=== PATIENT | female | born 1990 | race Caucasian/White ===

== ENCOUNTER 2016-03-26 11:21 | Outpatient (CLI) | payer BC | END 2016-03-26 11:22 | disposition home or self-care (01) | DX: Z36 Encounter for antenatal screening of mother (principal); Z3A.01 Less than 8 weeks gestation of pregnancy; Z34.81 Encounter for supervision of other normal pregnancy, first trimester ==

== ENCOUNTER 2016-06-04 07:31 | Outpatient (CLI) | payer BC | END 2016-06-04 07:32 | disposition home or self-care (01) | DX: Z36 Encounter for antenatal screening of mother (principal) ==

== ENCOUNTER 2016-07-13 08:00 | Outpatient (CLI) | payer BC | END 2016-07-13 08:01 | disposition home or self-care (01) | DX: Z36 Encounter for antenatal screening of mother (principal) ==

== ENCOUNTER 2016-07-28 07:56 | Outpatient (CLI) | payer BC ==
[2016-07-28 08:54] LABS: GTT GLUCOSE,FASTING 89 mg/dL (70-100)
== END 2016-07-28 07:57 | disposition home or self-care (01) ==
LOC: LAB 07:56
PROVIDERS: ATTEND Obstetrics & Gynecology
DX: Z36 Encounter for antenatal screening of mother (principal)
CPT/HCPCS: 36415; 82951

== ENCOUNTER 2016-09-17 10:30 | Outpatient (CLI) | payer BC | END 2016-09-17 10:31 | disposition home or self-care (01) | LOC: LAB.R 10:30 | PROVIDERS: ATTEND Obstetrics & Gynecology | DX: Z34.83 Encounter for supervision of other normal pregnancy, third trimester (principal) | CPT/HCPCS: 87081 ==

== ENCOUNTER 2016-09-24 11:47 | Outpatient (CLI) | payer BC ==
[2016-09-24 12:04] VITALS: BP 123/86
--- NOTE | 2016-10-05 07:21 | PROCEDURE REPORT ---
DATE OF PROCEDURE: 09/24/2016 00:00:00 PREOPERATIVE DIAGNOSIS: Breech presentation; transverse to oblique currently. POSTOPERATIVE DIAGNOSIS: Successful version. PROCEDURE: External version. PHYSICIAN: Kevin Grant MD, FACOG. ANESTHESIA: Jos Forman CRNA, on standby. BLOOD LOSS: Minimal. COMPLICATIONS: None. FINDINGS 1. Yesterday's examination confirmed a everton breech presentation with adequate fluid. Placenta is n oted to be anterior. Initial ultrasound exam finds a transverse to oblique, slightly head-down prese ntation. There is adequate fluid. 2. Post-procedure ultrasound confirms head-down. TECHNIQUE: Patient had a confirmed breech presentation yesterday. She underwent an informed consent session, that she was informed of options, expectant management, external version, or elective C-sec tion. She decided on version. She is aware of the risks, being cord entanglement, compromise, emergent , pain and discomfort, and abruption. Untoward events were quoted to be less than 6% with possibility of loss attributed to version less than 1%. All questions were answered. Discussed case with OR and Anesthesia. Anesthesia talked to the patient and was on alert. OR had a room open and ready for emergent section. A second laboratory secretary was in the building, Dr. Jaeger. Began the initial exam and found the head to be head-down oblique. Application of ultrasound sensor to the back initiated an easy forward somersault rotation to a complete vertex presentation. Mother was monitored post version and found to have no evidence of distress. Patient was given instru ctions and discharged home. Blood type is Rh positive and RhoGAM not required. JOB #: [id number] EXT JOB #:[id number]
== END 2016-09-24 13:15 | disposition home or self-care (01) ==
LOC: WFO 11:47 → OB 11:49 → WFO 13:15
PROVIDERS: ATTEND Obstetrics & Gynecology
DX: O32.2XX0 Maternal care for transverse and oblique lie, not applicable or unspecified (principal); Z3A.37 37 weeks gestation of pregnancy
CPT/HCPCS: 59025

== ENCOUNTER 2016-10-15 00:02 | Inpatient (IN) | payer BC ==
[2016-10-15] MEDS ORDERED: OXYTOCIN 10 UNIT/ML VIAL IM SCH (00:23)
[2016-10-15] MEDS ORDERED: LACTATED RINGERS 1,000 ML IV ONE (00:27)
[2016-10-15] MEDS ORDERED: SODIUM CHLORIDE FLUSH 0.9% 10 ML SYRINGE IVP ONE (00:27)
[2016-10-15] MEDS ORDERED: miSOPROStol 200 MCG TABLET ONE (00:29)
[2016-10-15] MEDS ORDERED: LIDOCAINE 1% 50 ML MDV ONE (00:29)
[2016-10-15] MEDS ORDERED: MINERAL OIL LIGHT 10 ML MC ONE (00:29)
[2016-10-15] MEDS: LACTATED RINGERS 1,000 ML IV SCH ×2 (00:30→21:59)
[2016-10-15] MEDS ORDERED: TERBUTALINE 1 MG/ML VIAL SUBQ ONE (00:30)
[2016-10-15] MEDS ORDERED: OXYTOCIN/LACTATED RINGERS 250 ML IV ONE (00:30)
--- NOTE | 2016-10-15 00:52 | HISTORY & PHYSICAL EXAMINATION ---
DATE OF ADMISSION: 10/15/2016 IDENTIFICATION: This is a 26-year-old G4, P3-0-0-3 with a 40 and 1/7 week intrauterine , EDC is 10/14/2016 changed by a 7 week ultrasound. HISTORY OF PRESENT ILLNESS: The patient is a patient of [facility] who has noticed that her bag of water has been leaking. She is also experiencing small contractions. Initially on examination she was 9 cm dilated. She is kierra consistently every 2 to 3 minutes. heart status is reassuring. The patient has been having routine care with us at [facility] since 7 weeks gestation. She is noted to be GBS negative. The patient would like an epidural but I fear that she will deliver before this is possible. PAST MEDICAL HISTORY: None. PAST SURGICAL HISTORY: None. ALLERGIES: NO KNOWN DRUG ALLERGIES. MEDICATIONS: vitamins. SOCIAL HISTORY: She denies any tobacco, alcohol or illicit drug use. Her is Jose Antonio, and they have sons Chano, Cooper and Damir and this is a male infant. PAST OBSTETRICAL HISTORY: Three vaginal deliveries. The last delivery was a vacuum assisted secondary to nonreassuring heart tones. She did have a clinical placenta abruption at the time of delivery. Last labor lasted 2 hours. PAST GYNECOLOGICAL HISTORY: She denies any abnormal Pap smears or sexually transmitted diseases. She also denies any irregular menstruation. FAMILY HISTORY: Noncontributory. REVIEW OF SYSTEMS Negative. PHYSICAL EXAMINATION VITAL SIGNS: Stable. She is afebrile. ABDOMEN: Gravid, nontender. LABS: A positive, antibody screen negative, HIV negative, PRP nonreactive, Hep B negative, 1 hr GTT 149, 3 hr GTT 89, 148, 141, 126. GBS negative. ASSESSMENT: 1. G4, P3-0-0-3 with a 40 and 1/7 week intrauterine . 2. Active labor. PLAN: Will anticipate spontaneous vaginal delivery. JOB #: [id number] EXT JOB #:[id number] PATRICIA
[2016-10-15 00:54] LABS: BASOPHILS # (AUTO) 0.1 10^3/uL (0.0-0.1); BASOPHILS % (AUTO) 0.6 %; EOSINOPHILS # (AUTO) 0.1 10^3/uL (0.0-0.7); EOSINOPHILS % (AUTO) 0.9 %; HCT - HEMATOCRIT 33.4 % (37.0-47.0); HGB - HEMOGLOBIN 10.3 g/dL (12.0-16.0); LYMPHOCYTES # (AUTO) 4.2 10^3/uL (1.5-3.5); MEAN CORPUSCULAR HEMOGLOBIN 20.7 pg (27.0-31.0); MEAN CORPUSCULAR HGB CONC 30.9 g/dL (32.0-36.0); MEAN PLATELET VOLUME 8.6 fL (7.9-10.8); MONOCYTES # (AUTO) 1.2 10^3/uL (0.0-1.0); MONOCYTES % (AUTO) 7.9 %; NEUTROPHILS # (AUTO) 9.4 10^3/uL (1.5-6.6); NEUTROPHILS % (AUTO) 62.6 %; NUCLEATED RED BLOOD CELLS AUTO 0.3 /100WBC; RED BLOOD COUNT 4.99 10^6/uL (4.20-5.40); RED CELL DISTRIBUTION WIDTH 19.7 % (12.0-15.0); UNCORRECTED WHITE BLOOD COUNT 15.1 x10^3/uL; WHITE BLOOD COUNT 15.1 x10^3/uL (4.8-10.8)
[2016-10-15] MEDS ORDERED: OXYTOCIN/LACTATED RINGERS 250 ML IV SCH (01:00)
[2016-10-15] MEDS ORDERED: HYDROCORTISONE 1% CREAM 28 GM TUBE PR PRN (01:27)
[2016-10-15] MEDS ORDERED: HYDROcod/ACETAM 5/325 MG TABLET PO PRN (01:27)
[2016-10-15] MEDS ORDERED: MAGNESIUM HYDROXIDE 2,400 MG/30 ML UDC PO PRN (01:27)
[2016-10-15] MEDS ORDERED: HYDROCORTISONE/PRAMOXINE 10 GM PR PRN (01:27)
[2016-10-15] MEDS ORDERED: WITCH HAZEL/GLYCERIN 1 EACH MED..PAD TOP PRN (01:27)
[2016-10-15 01:37] LABS: PLATELET ESTIMATE, MANUAL NORMAL (130-450,000) (NORMAL)
--- NOTE | 2016-10-15 01:37 | DELIVERY NOTE ---
Delivery Note - Labor Labor: positive: Spontaneous - Delivery Method Delivery Method: positive: Spontaneous vaginal delivery - Presentation Presentation: positive: Vertex, JONO - right occiput anterior - Nuchal Cord Nuchal Cord: positive: Present (Nuchal cord x 1, tight. Delivered through.) - Anesthetic Anesthetic: positive: Lidocaine - 0.5% plain Volume: positive: Other (20 mL) - Amniotic Fluid Description Amniotic Fluid Description: positive: Clear - Episiotomy Type Episiotomy Type: positive: None - Laceration Laceration: positive: 2nd degree - Suture Suture Type: positive: Vicryl Suture Size: positive: 3-0 - Delivery Outcome Delivery Outcome: positive: Livebirth - Hancock: positive: Placed in direct skin contact with mother Hancock sex: positive: Male - Cord Cord: positive: 3 vessels - Placenta Placenta: positive: Intact, Spontaneous - Estimated Blood Loss Estimated Blood Loss (in cc): 300 - Post Delivery Events Post Delivery Events: positive: No post delivery events - Delivery Comments (Free Text/Narrative) Delivery Comments (Free Text/Narrative): 26 yo with a 40w1d IUP presented with complaints of contractions beginning about 23:00 with LOF at 23:15. She presented at 9 cm dilation and delivered a viable male infant named Ricky. Tight nuchal cord x 1 delivered through. Apgars 9/9/10. Placenta delivered spontaneously, intact, 3VC. 2nd degree midline laceration repaired with 3-0 vicryl. EBL 300 mL. No complications. Routine care. Labs, EKG, Meds, Allergy - Lab Results Lab results reviewed: Yes Fish Bones: 10/15/16 00:34 Other Lab Results: Lab Results x24hrs 10/15/16 Range/Units 00:34 WBC 15.1 H (4.8-10.8) x10^3/uL RBC 4.99 (4.20-5.40) 10^6/uL Hgb 10.3 L (12.0-16.0) g/dL Hct 33.4 L (37.0-47.0) % MCV 67.0 L (81.0-99.0) fL MCH 20.7 L (27.0-31.0) pg MCHC 30.9 L (32.0-36.0) g/dL RDW 19.7 H (12.0-15.0) % Plt Count 235 (130-450) 10^3/uL MPV 8.6 (7.9-10.8) fL Neut # 9.4 H (1.5-6.6) 10^3/uL Lymph # 4.2 H (1.5-3.5) 10^3/uL [place] # 1.2 H (0.0-1.0) 10^3/uL Eos # 0.1 (0.0-0.7) 10^3/uL Baso # 0.1 (0.0-0.1) 10^3/uL Absolute Nucleated RBC 0.05 x10^3/uL Nucleated RBCs 0.3 /100WBC Manual Slide Review Indicated Platelet Estimate NORMAL (130-450,000) (NORMAL) RBC Morph Micro Appear 1+ MACROCYTOSIS (NORMAL) - Allergy Allergy: Allergies Allergy/AdvReac Type Severity Reaction Status Date / Time No Known Drug Allergies Allergy Verified 08/16/12 20:19
[2016-10-15] MEDS: SIMETHICONE CHEW 80 MG TABLET PO PRN ×2 (09:29→13:53)
[2016-10-15] MEDS: CELECOXIB 100 MG CAPSULE PO SCH ×2 (09:29→23:08)
[2016-10-15] MEDS: ACETAMINOPHEN 325 MG TABLET PO PRN ×3 (09:29→23:08)
[2016-10-15] MEDS: DOCUSATE SODIUM 100 MG CAPSULE PO SCH ×2 (09:30→23:10)
--- NOTE | 2016-10-15 12:10 | PROVIDER PROGRESS NOTE ---
Subjective - Prog Note Date Prog Note Date: 10/15/16 Prog Note Time: 12:09 - Subjective Pt reports feeling: Improved Subjective: Patient sitting in bed, eating lunch. Feeling better. Baby Ricky weighed 8 lbs 14 oz. Ambulating and urinating without difficulty. Routine care. Anticipate discharge to home tomorrow. Objective - Vital Signs/Intake & Output Vital Signs: Vital Signs x48h Temp Pulse Resp BP Pulse Ox 10/15/16 11:55 98.4 F 95 18 118/74 98 10/15/16 08:46 99.0 F 123 H 20 115/67 99 10/15/16 05:55 98.1 F 97 18 118/73 Intake & Output: Intake & Output 10/12/16 10/13/16 10/14/16 10/15/16 23:59 23:59 23:59 23:59 Intake Total 500 Output Total 400 Balance 100 - Lab Results Fish Bones: 10/15/16 00:34 Other Labs: Lab Results x24hrs 10/15/16 Range/Units 00:34 WBC 15.1 H (4.8-10.8) x10^3/uL RBC 4.99 (4.20-5.40) 10^6/uL Hgb 10.3 L (12.0-16.0) g/dL Hct 33.4 L (37.0-47.0) % MCV 67.0 L (81.0-99.0) fL MCH 20.7 L (27.0-31.0) pg MCHC 30.9 L (32.0-36.0) g/dL RDW 19.7 H (12.0-15.0) % Plt Count 235 (130-450) 10^3/uL MPV 8.6 (7.9-10.8) fL Neut # 9.4 H (1.5-6.6) 10^3/uL Lymph # 4.2 H (1.5-3.5) 10^3/uL [place] # 1.2 H (0.0-1.0) 10^3/uL Eos # 0.1 (0.0-0.7) 10^3/uL Baso # 0.1 (0.0-0.1) 10^3/uL Absolute Nucleated RBC 0.05 x10^3/uL Nucleated RBCs 0.3 /100WBC Manual Slide Review Indicated Platelet Estimate NORMAL (130-450,000) (NORMAL) RBC Morph Micro Appear 1+ MACROCYTOSIS (NORMAL)
--- NOTE | 2016-10-16 06:35 | PROVIDER PROGRESS NOTE ---
Subjective - Prog Note Date Prog Note Date: 10/16/16 Prog Note Time: 06:32 - Subjective Pt reports feeling: Improved Subjective: Patient just showered. Doing well and without complaints. Normal lochia, urinating without difficulty. Ambulating. Pain controlled with po meds. Desires to go home. Objective - Vital Signs/Intake & Output Reviewed Vital Signs: Yes Vital Signs: Vital Signs x48h Temp Pulse Resp BP Pulse Ox 10/16/16 04:20 98.4 F 86 18 110/68 99 10/15/16 23:17 98.6 F 98 20 108/67 99 Intake & Output: Intake & Output 10/13/16 10/14/16 10/15/16 10/16/16 23:59 23:59 23:59 23:59 Intake Total 500 Output Total 400 Balance 100 - Objective General Appearance: positive: No acute distress Eyes Bilateral: positive: Normal inspection Abdomen: positive: Non-tender (firm fundus) Neurologic/Psychiatric: positive: Oriented x3 - Lab Results Fish Bones: 10/15/16 00:34 Assessment/Plan - Problem List (1) Delivery normal Impression: 26 yo S/p Normal recovery Discharge to home Follow up in 6 weeks for a routine exam Rx for vicodin for breakthrough pain Call if worsening fevers, chills, vaginal bleeding or abdominal pain Discharge Plan Disposition: 01 Home, Self Care Condition: Good Diet: Regular Activity Restrictions: Activity as Tolerated Shower Restrictions: No Driving Restrictions: No Weight Bearing: Full Weight No Smoking: If you smoke, Please STOP! Call for help.
[2016-10-16 08:23] VITALS: BP 121/80
[2016-10-16] MEDS: DOCUSATE SODIUM 100 MG CAPSULE PO SCH (08:53)
--- NOTE | 2016-10-16 10:02 | Labor Flowsheet ---
Labor Flowsheet Datetime Report Generated by CPN: 10/16/2016 10:02 Datetime: 10/16/2016 08:11 VITAL SIGNS NBP Sys/Chrissy/Mean (mmHg): 121 : 80 : 87 Pulse: 121 Datetime: 10/15/2016 23:13 Temperature (F): 98.6 Temperature (C): 37.0 Temperature (C): 37.0
== END 2016-10-16 09:50 | disposition home or self-care (01) | DRG 775 ==
LOC: WFO 00:02 → FBP 00:04
PROVIDERS: ADMIT Obstetrics & Gynecology; ATTEND Obstetrics & Gynecology
PROC: 10E0XZZ Delivery of Products of Conception, External Approach (ICD-10-PCS; principal; 2016-10-15)
PROC: 0KQM0ZZ Repair Perineum Muscle, Open Approach (ICD-10-PCS; 2016-10-15)
DX: O69.81X0 Labor and delivery complicated by cord around neck, without compression, not applicable or unspecified (principal); O70.1 Second degree perineal laceration during delivery; Z3A.40 40 weeks gestation of pregnancy; Z37.0 Single live birth
CPT/HCPCS: 85025; 99212

== ENCOUNTER 2022-12-14 07:12 | Outpatient (CLI) | payer BC ==
[2022-12-14 14:53] LABS: BASOPHILS # (AUTO) 0.1 10^3/uL (0.0-0.1); BASOPHILS % (AUTO) 1.8 %; EOSINOPHILS # (AUTO) 0.7 10^3/uL (0.0-0.7); EOSINOPHILS % (AUTO) 9.6 %; HCT - HEMATOCRIT 42.6 % (37.0-47.0); HGB - HEMOGLOBIN 13.4 g/dL (12.0-16.0); LYMPHOCYTES # (AUTO) 2.5 10^3/uL (1.5-3.5); LYMPHOCYTES % (AUTO) 36.3 %; MEAN CORPUSCULAR HEMOGLOBIN 29.2 pg (27.0-31.0); MEAN CORPUSCULAR HGB CONC 31.5 g/dL (32.0-36.0); MEAN CORPUSCULAR VOLUME 92.8 fL (81.0-99.0); MEAN PLATELET VOLUME 10.8 fL (7.9-10.8); MONOCYTES # (AUTO) 0.6 10^3/uL (0.0-1.0); MONOCYTES % (AUTO) 8.4 %; NEUTROPHILS # (AUTO) 2.9 10^3/uL (1.5-6.6); NEUTROPHILS % (AUTO) 43.6 %; PLT - PLATELET COUNT 327 10^3/uL (130-450); RED BLOOD COUNT 4.59 10^6/uL (4.20-5.40); RED CELL DISTRIBUTION WIDTH 12.9 % (12.0-15.0); WHITE BLOOD COUNT 6.8 x10^3/uL (4.8-10.8)
[2022-12-14 15:22] LABS: ALBUMIN 4.5 g/dL (3.2-5.5); ALBUMIN/GLOBULIN RATIO 1.9 (1.0-2.2); ALKALINE PHOSPHATASE 49 IU/L (42-121); ALT ALANINE AMINOTRANSFERASE 17 IU/L (10-60); AST ASPARTATE AMINOTRANSFERASE 14 IU/L (10-42); BILIRUBIN,TOTAL 0.3 mg/dL (0.2-1.0); BUN - BLOOD UREA NITROGEN 15 mg/dL (6-20); CALCIUM 9.9 mg/dL (8.5-10.3); CARBON DIOXIDE - CO2 28 mmol/L (21-32); CHLORIDE 106 mmol/L (101-111); CHOL/HDL RATIO 3.8 (<4.4); CHOLESTEROL 174 mg/dL; CREATININE 0.8 mg/dL (0.6-1.3); GFR - MDRD 83 (>89); GLUCOSE 94 mg/dL (74-104); HDL CHOLESTEROL 46 mg/dL; LDL CHOLESTEROL,CALCULATED 109 mg/dL; LDL/HDL RATIO 2.4 (<4.4); POTASSIUM 4.4 mmol/L (3.5-4.5); SODIUM 139 mmol/L (135-145); TOTAL PROTEIN 6.9 g/dL (6.4-8.9); TRIGLYCERIDES 95 mg/dL (48-352); VLDL CHOLESTEROL 19 mg/dL
== END 2022-12-14 07:13 | disposition home or self-care (01) ==
LOC: LAB.S 07:12
PROVIDERS: ATTEND Physician Assistant Medical
DX: Z86.11 Personal history of tuberculosis (principal)
CPT/HCPCS: 36415; 80053; 80061; 81599; 83721; 85025; 86480